=== PATIENT | female | born 1955 | race Caucasian/White ===

== ENCOUNTER 2024-12-31 13:52 | Outpatient (AMB) | payer MEDICARE, SELFPAY ==
--- NOTE | 2024-12-31 13:53 | MHC.PC.OV ---
Vital Signs 12/31/24 14:03 Height 5 ft 4.96 in Weight 271 lb BMI 45.1 BP 138/62 Blood Pressure Location Rt brachial Position Sitting Respiration 14 Pulse 68 Pulse Source Pulse Oximeter Temp 97.8 F Temp Source Temporal Artery Scan Pulse Oximetry (%) 97 Oxygen Delivery Method Room Air Intake Visit Reasons: Office visit new patient Core Fitter Required: No Accompanied by: Self / Same As Patient Allergies No Known Allergies Allergy (Verified 12/31/24 16:09) Medication List - Last Reconciled 12/31/24 by Migdalia Zuniga PA-C budesonide-formoterol 80-4.5 mcg/actuation (Symbicort) inhalation doxycycline hyclate 100 mg PO Q12H hydrochlorothiazide 25 mg PO DAILY levothyroxine 75 mcg PO DAILY lisinopril 30 mg PO DAILY metoprolol succinate ER 50 mg PO DAILY nystatin topical BID pantoprazole 40 mg PO BID simvastatin 40 mg PO BEDTIME Tobacco use date assessed: 12/31/24 Fall risk assessment: No Falls in past year Last assessed Fall Risk: 12/31/24 Dental Screening Dental Screen Date: 12/31/24 Did you have a dental visit in the last 12 months?: Yes Did you have a dental problem in the last 6 months where you did not have access to dental care?: No Was dental information given to patient?: Patient has dentist HPI Office visit new patient HPI Details The patient is a 69-year-old female presenting as a new patient to establish care, obtain multiple referrals, and address several health concerns. Her primary complaint is stomach discomfort, which is located in the right upper quadrant and is more noticeable upon waking in the morning. She has not identified any specific food triggers. The patient has a significant gastrointestinal history, including severe diverticulitis with a perforated diverticulum, which led to a colectomy and subsequent reversal around the age of 48. Her last colonoscopy was on 07/03/2014, and she is now overdue for a repeat screening which was due in 2019. She reports having lost track of her appointments after her became ill and subsequently . Her past medical history is also notable for grade 1 diastolic dysfunction, for which she takes metoprolol but has not seen a on line csr or had a cardiac ultrasound in years. She has a diagnosis of emphysema and was a smoker for many years, though she now uses e-cigarettes. Other chronic conditions include subclinical hypothyroidism treated with levothyroxine, hypertension, impaired fasting glucose, history of kidney stones, trochanteric bursitis, IT band syndrome, and morbid obesity. Surgical history includes a right hip replacement and removal of a cyst from her spine in November 2022. The patient is overdue for several health screenings, including a cervical cancer screening (last performed 3 years ago), a bone density scan (last normal in 2020), and an annual lung cancer screening. She has an upcoming appointment for a screening mammogram on 01/06 and a dermatology appointment on March 17 for a skin lesion. Her current medications include Symbicort, dicyclomine, hydrochlorothiazide, levothyroxine, lisinopril, metoprolol, nystatin ointment, pantoprazole, and simvastatin, as well as several [id number] supplements. Social History - Tobacco Use: Patient is a former smoker of traditional cigarettes and currently uses e-cigarettes. - Diet: Reports eating the same kind of junk, basically. - Social Support: Patient's after a period of illness. [facility] Medical History (Updated 12/31/24 @ 16:17 by Migdalia Zuniga PA-C) History of diverticulitis Hypertension Morbid obesity with BMI of 45.0-49.9, adult IT band syndrome Impaired fasting glucose History of kidney stones Follow-up exam Abnormal laboratory test Preventative health care Healthcare maintenance Subclinical hypothyroidism History of smoking Diastolic dysfunction Skin lesions Cervical cancer screening Upper abdominal pain Colon cancer screening Surgical History (Updated 12/31/24 @ 16:17 by Migdalia Zuniga PA-C) History of colectomy History of right hip replacement H/O removal of cyst History of colonoscopy (~07/03/14) Family History Father No problems noted. Mother No problems noted. Social History Housing: House Alcohol intake: current Alcohol intake frequency: does not drink Patient Tobacco Use Status: Former Tobacco user service: No Current occupational status: retired Cognitive needs: No Hearing needs: No Vision needs: Yes (rx glasses) Questionnaire PHQ-9 Over the last 2 weeks, how often have you been bothered by any of the following problems? 1. Little interest or pleasure in doing things: not at all 2. Feeling down, depressed, or hopeless: not at all 3. Trouble falling or staying asleep, or sleeping too much: not at all 4. Feeling tired or having little energy: not at all 5. Poor appetite or overeating: not at all 6. Feeling bad about yourself - or that you are a failure or have let yourself or your family down: not at all 7. Trouble concentrating on things, such as reading the newspaper or watching television: not at all 8. Moving or speaking so slowly that other people could have noticed. Or the opposite - being so fidgety or restless that you have been moving around a lot more than usual: not at all 9. Thoughts that you would be better off or of hurting yourself in some way: not at all Total score: 0 Depression Screening Interpretation: Negative Depression Screening Done: Yes 21786 - PHQ-9 Billing: Yes Source: Developed by Drs. Chintan Phillips, Susan Boucher, Devang Milligan and colleagues, with an educational ash from [employer]. Thrive Questionnaire Date Thrive assessed: 12/31/24 I am a: Patient What is your living situation today?: I have a steady place to live Within the past 12 months, did the food you bought not last and you didn't have the money to get more?: Never true Within the past 12 months, did you worry whether your food would run out before you got money to buy more?: Never true Do you have trouble paying for medicines?: No Do you have trouble getting transportation to medical appointments?: No Do you have trouble paying your heating and electricity bill?: No Do you have trouble taking care of your child, family member or friend?: No Do you have trouble with day-to-day activities such as bathing, preparing meals, shopping, managing finances, etc.?: No Are you currently unemployed and looking for a job?: No Are you interested in more education?: No Please select the resources that you would like help with: None THRIVE Score: 0 AUDIT C Alcohol Use Questionnaire (AUDIT-C) 1. How often do you have a drink containing alcohol?: Never 3. How often do you have six or more drinks on one occasion?: Never Total Score: 0 Score Reviewed/Action Taken: No SHARON-7 AMB Questionnaire SHARON-7 Date SHARON - 7 assessed: 12/31/24 Feeling nervous, anxious, or on edge: 1 = Several days Not being able to stop or control worryin = Several days Worrying too much about different things: 1 = Several days Trouble relaxin = Not at all Being so restless that it is hard to sit still: 0 = Not at all Becoming easily annoyed or irritable: 0 = Not at all Feeling afraid as if something awful might happen: 0 = Not at all Total SHARON-7 score (0-4 normal; 5-9 mild; 10-14 moderate; 15-21 severe): 3 Source: Developed by Drs. Chintan Phillips, Susan Boucher, Devang Milligan and colleagues, with an educational ash from [employer] SHARON-7 Assessment Billing SHARON-7 Assessment Tool: SHARON-7 Assessment 93008 Review of Systems Const Details: - General: Reports feeling generally good. Denies fevers. - GI: Reports right upper quadrant abdominal pain, which is more noticeable upon waking. - Also reports intermittent stomach clenching. - Denies nausea. - Respiratory: Reports some shortness of breath. - Cardiovascular: Denies chest pain. - Musculoskeletal: Reports hip and shoulder soreness. - Dermatologic: Reports having a weird spot on the skin. - HEENT: Reports ongoing allergies. - Extremities: Reports legs feel a little foofy. All systems reviewed & are unremarkable except as noted in HPI and below Physical exam (Primary Care) Vital Signs: Last Vital Signs Temp 97.8 F 12/31/24 14:03 Pulse 68 12/31/24 14:03 Resp 14 12/31/24 14:03 BP 138/62 12/31/24 14:03 Pulse Ox 97 12/31/24 14:03 Oxygen Delivery Method Room Air 12/31/24 14:03 Care Plan Goal for BP management: <140/90 at Goal BMI result Body Mass Index 45.1 BMI Assessment/Plan discussion: High BMI High, discussed plan: lifestyle, weight reduction, dietary, physical activity, alcohol moderation and other Tobacco/Smoking Status: Tobacco use Status Tobacco use date assessed 12/31/24 12/31/24 13:55 Patient Tobacco Use Status Former Tobacco user 12/31/24 14:12 PHQ-9: PHQ-9 Score PHQ-9: Total score 0 12/31/24 14:00 Depression Screening Interpretation: Negative Thrive Assessment: Date of Thrive Assessment Date Thrive assessed 12/31/24 12/31/24 13:55 Const Other: Appearance: Alert. Oriented X3. No acute distress. Head: Normal external exam. Normocephalic. Atraumatic. Eyes: Pupils are equal, round, and reactive to light. Extraocular movements intact. Conjunctiva and sclera normal. Eyelids normal. Ears: External auditory canal normal. Tympanic membranes normal. Throat: Pharynx normal. Uvula midline. Moist mucous membranes. Neck: Normal inspection. Neck supple. Full range of motion. No adenopathy. Thyroid Normal. No meningeal signs. No neck mass noted. Cardiovascular: Normal heart rate and rhythm. Heart sound normal. A murmur is noted. Pulses normal throughout. Respiratory: No respiratory distress. Painless inspiration. Breath sounds normal. No wheezes/rales/rhonchi noted. Chest nontender. No accessory muscle usage noted or decreased air movement noted. Abdomen: Soft and nontender. Bowel sounds normal in all 4 quadrants. No distention noted. No organomegaly noted. No visible injury noted. Reports pain in the right upper quadrant, more noticeable in the morning. Back: No costovertebral angle tenderness. Full range of motion noted. Skin: Skin warm and dry. Normal skin color. Normal skin turgor. No rashes/lesions/lacerations noted. Extremities: No lower extremity edema. Extremities exhibit normal range of motion. Extremities nontender. Neuro: Oriented X 3. No motor deficit. No sensory deficit. Reflexes normal. Office Procedures Flu Questionnaire Does the patient have a severe egg allergy?: No Does the patient have severe life threatening allergies?: No Does the patient have a fever or illness today?: No Has the patient ever had Guillain-[place] Syndrome?: No Has the patient ever had any past reaction to a flu shot?: No Immunizations Fluarix [id number] (PF) 45 mcg (15 mcg x 3)/0.5 mL IM syringe Performing Provider: Migdalia Zuniga PA-C [facility] [place] [facility] Documented (not given) by: GIUSEPPE Parks on 12/31/24 14:12 Reason Not Given: Received Previously Results Reviewed Results Reviewed: - Lab results from 09/05/2022 were reviewed: - Glucose: Normal. - Creatinine: 1.02 (elevated). - GFR: 59. - Sodium, Potassium, Chloride: Normal. - Calcium: 10.4 (high). - Total protein, albumin, liver enzymes: Normal. - Thyroid: Normal. - Apolipoprotein B: Normal. - Prior imaging reviewed: - Bone density test (03/20/2020): Normal. - Mammogram (11/30/2021): Normal. - Prior procedures reviewed: - Colonoscopy (07/03/2014): Next due in 2019. Coding Level of Care Code New Pt Level 4 (90479) Complex EM visit Add On G2211 Diagnoses Healthcare maintenance Z00.00 Preventative health care Z00.00 Upper abdominal pain R10.10 Diastolic dysfunction I51.89 Subclinical hypothyroidism E03.8 Abnormal laboratory test R89.9 Follow-up exam Z09 Colon cancer screening Z12.11 Skin lesions L98.9 History of smoking Z87.891 Cervical cancer screening Z12.4 Trochanteric bursitis M70.60 Emphysema lung J43.9 Impaired fasting glucose R73.01 IT band syndrome M76.30 Morbid obesity with BMI of 45.0-49.9, adult E66.01; Z68.42 Hypertension I10 Additional Codes PHQ-9 - 35913 - PHQ-9 Billing: Yes ([id number]) SHARON-7 Assessment Billing - SHARON-7 Assessment Tool: SHARON-7 Assessment 64908 ([id number]) Time Spent (min) 65 Assessment & Plan Assessment & Plan (1) Healthcare maintenance: Code(s): Z00.00 - Encounter for general adult medical examination without abnormal findings Category: Medical Plan: The patient is establishing care and requires several referrals for overdue screenings. A referral will be placed to Gastroenterology (Vivian Gaitan) for a screening colonoscopy, as the last was in 2014. A referral will be placed for a screening mammogram at [facility]; patient has an appointment scheduled for 01/06. A referral will be placed to TRANSFORMATION MANAGER (Dr. Jose Vera) for a Pap smear, as she has not had one in three years. A referral will be placed for a bone density scan, as her last one was in 2020. A referral will be placed to Dermatology for evaluation of a skin lesion; the patient has a scheduled appointment with Dr. Josue Harris. A referral will be placed for a low-dose CT lung cancer screening due to her history of smoking. (2) Preventative health care: Code(s): Z00.00 - Encounter for general adult medical examination without abnormal findings Category: Medical Plan: The patient is establishing care and requires several referrals for overdue screenings. A referral will be placed to Gastroenterology (Vivian Gaitan) for a screening colonoscopy, as the last was in 2014. A referral will be placed for a screening mammogram at [facility]; patient has an appointment scheduled for 01/06. A referral will be placed to TRANSFORMATION MANAGER (Dr. Jose Vera) for a Pap smear, as she has not had one in three years. A referral will be placed for a bone density scan, as her last one was in 2020. A referral will be placed to Dermatology for evaluation of a skin lesion; the patient has a scheduled appointment with Dr. Josue Harris. A referral will be placed for a low-dose CT lung cancer screening due to her history of smoking. (3) Upper abdominal pain: Code(s): R10.10 - Upper abdominal pain, unspecified Category: Medical Plan: The patient reports right upper quadrant abdominal pain, primarily in the morning. To evaluate for gallbladder pathology, an abdominal ultrasound will be ordered. The imaging facility will contact the patient to schedule the appointment. (4) Diastolic dysfunction: Code(s): I51.89 - Other ill-defined heart diseases Category: Medical Plan: The patient has a history of grade 1 diastolic dysfunction and has not had a cardiac evaluation in several years. A murmur was noted on exam. An echocardiogram will be ordered to reassess cardiac function. If the results show worsening function, a referral to cardiology will be considered. (5) Subclinical hypothyroidism: Code(s): E03.8 - Other specified hypothyroidism Category: Medical Plan: The patient has subclinical hypothyroidism and is on levothyroxine. She has never had a thyroid ultrasound. Although no nodules were palpated on exam, a thyroid ultrasound is ordered to establish a baseline and rule out structural abnormalities. The imaging facility will contact her to schedule. (6) Abnormal laboratory test: Code(s): R89.9 - Unspecified abnormal finding in specimens from other organs, systems and tissues Category: Medical Plan: Recent labs showed a mildly elevated creatinine of 1.02 and high calcium of 10.4. The patient was advised to reduce her supplemental calcium intake from daily to two or three times a week. Repeat labs will be ordered, including a CBC, CMP, magnesium, TSH, vitamin B12, folate, vitamin D, and urinalysis. These can be drawn non-fasting. The patient will have her blood work done at the [facility]. (7) Follow-up exam: Code(s): Z09 - Encounter for follow-up examination after completed treatment for conditions other than malignant neoplasm Category: Medical Plan: The patient will be contacted with results of her labs and imaging studies. She is scheduled for a follow-up appointment in approximately six months, which can be designated as her annual physical depending on insurance eligibility. (8) Colon cancer screening: Code(s): Z12.11 - Encounter for screening for malignant neoplasm of colon Category: Medical Plan: Referral made at this time (9) Skin lesions: Code(s): L98.9 - Disorder of the skin and subcutaneous tissue, unspecified Category: Medical Plan: Referral made at this time (10) History of smoking: Code(s): Z87.891 - Personal history of nicotine dependence Category: Social Hx Plan: Referral for lung cancer screening made at this time (11) Cervical cancer screening: Code(s): Z12.4 - Encounter for screening for malignant neoplasm of cervix Category: Medical Plan: Referral made at this time (12) Trochanteric bursitis: Code(s): M70.60 - Trochanteric bursitis, unspecified hip Category: Medical Plan: Condition is chronic and stable (13) Emphysema lung: Code(s): J43.9 - Emphysema, unspecified Category: Medical Plan: Condition is chronic and stable (14) Impaired fasting glucose: Code(s): R73.01 - Impaired fasting glucose Category: Medical Plan: Condition is chronic and stable (15) IT band syndrome: Code(s): M76.30 - Iliotibial band syndrome, unspecified leg Category: Medical Plan: Condition is chronic and stable (16) Morbid obesity with BMI of 45.0-49.9, adult: Code(s): E66.01 - Morbid (severe) obesity due to excess calories; Z68.42 - Body mass index [BMI] 45.0-49.9, adult Category: Medical Plan: Patient to improve diet and exercise regimen. Condition is chronic and stable (17) Hypertension: Code(s): I10 - Essential (primary) hypertension Category: Medical Plan: Patient to continue hydrochlorothiazide 25 mg daily, metoprolol extended release 50 mg daily. Condition is chronic and stable continue to monitor Plan Plan Patient was informed and verbally consented to the use of an ambient scribe for clinic note documentation during this visit. 1. Health Maintenance And Preventative Care The patient is establishing care and requires several referrals for overdue screenings. A referral will be placed to Gastroenterology (Vivian Gaitan) for a screening colonoscopy, as the last was in 2014. A referral will be placed for a screening mammogram at [facility]; patient has an appointment scheduled for 01/06. A referral will be placed to TRANSFORMATION MANAGER (Dr. Jose Vera) for a Pap smear, as she has not had one in three years. A referral will be placed for a bone density scan, as her last one was in 2020. A referral will be placed to Dermatology for evaluation of a skin lesion; the patient has a scheduled appointment with Dr. Josue Harris. A referral will be placed for a low-dose CT lung cancer screening due to her history of smoking. 2. Right Upper Quadrant Abdominal Pain The patient reports right upper quadrant abdominal pain, primarily in the morning. To evaluate for gallbladder pathology, an abdominal ultrasound will be ordered. The imaging facility will contact the patient to schedule the appointment. 3. Diastolic Dysfunction The patient has a history of grade 1 diastolic dysfunction and has not had a cardiac evaluation in several years. A murmur was noted on exam. An echocardiogram will be ordered to reassess cardiac function. If the results show worsening function, a referral to cardiology will be considered. 4. Subclinical Hypothyroidism The patient has subclinical hypothyroidism and is on levothyroxine. She has never had a thyroid ultrasound. Although no nodules were palpated on exam, a thyroid ultrasound is ordered to establish a baseline and rule out structural abnormalities. The imaging facility will contact her to schedule. 5. Abnormal Laboratory Findings Recent labs showed a mildly elevated creatinine of 1.02 and high calcium of 10.4. The patient was advised to reduce her supplemental calcium intake from daily to two or three times a week. Repeat labs will be ordered, including a CBC, CMP, magnesium, TSH, vitamin B12, folate, vitamin D, and urinalysis. These can be drawn non-fasting. The patient will have her blood work done at the [facility] facility. 6. Follow-Up The patient will be contacted with results of her labs and imaging studies. She is scheduled for a follow-up appointment in approximately six months, which can be designated as her annual physical depending on insurance eligibility. I discussed with the patient the plan for her new patient visit, which includes establishing care and addressing her multiple concerns and needs for referrals. I explained that we would be ordering an abdominal ultrasound to investigate her right upper quadrant pain, an echocardiogram to re-evaluate her heart function, and a thyroid ultrasound as a baseline for her thyroid condition. I informed her that the facilities would call her to schedule these imaging appointments. I provided her with printed referrals for gastroenterology, mammogram, TRANSFORMATION MANAGER, bone density scan, and lung cancer screening, and explained she would need to make these appointments herself. We reviewed her recent lab results, noting the elevated creatinine and calcium levels. I advised her to reduce her supplemental calcium intake and explained that we would be ordering a new set of labs to recheck her kidney function and other values. I clarified that the lab work can be done non-fasting and that she can go to the [facility] facility. I assured her that we would call her with all results. We scheduled a six-month follow-up appointment. Orders: Orders XR DEXA axial skeleton Today M81.0 - Age-related osteoporosis without current pathological fracture Magnesium Today Z00.00 - Encounter for general adult medical examination without abnormal findings Influenza [id number] Immunization Today Z23 - Encounter for immunization US abdomen complete Today R10.10 - Upper abdominal pain, unspecified MM screening mammo BI Today Z12.31 - Encounter for screening mammogram for malignant neoplasm of breast CA echo transthoracic complete Today I51.89 - Other ill-defined heart diseases TSH reflex Free T4 Today Z00.00 - Encounter for general adult medical examination without abnormal findings UA CC w/rflx Micro + Cult Today Z00.00 - Encounter for general adult medical examination without abnormal findings Vitamin B12 and Folate Today Z00.00 - Encounter for general adult medical examination without abnormal findings Vitamin D 25-OH Total Today Z00.00 - Encounter for general adult medical examination without abnormal findings Complete Blood Count no Diff Today Z00.00 - Encounter for general adult medical examination without abnormal findings Comprehensive Met. Panel Today Z00.00 - Encounter for general adult medical examination without abnormal findings Hemoglobin A1c Today Z00.00 - Encounter for general adult medical examination without abnormal findings US thyroid Today E03.8 - Other specified hypothyroidism Referrals TRANSFORMATION MANAGER Referral Z12.4 - Encounter for screening for malignant neoplasm of cervix Dermatology Referral L98.9 - Disorder of the skin and subcutaneous tissue, unspecified Lung Cancer Screening Referral Z87.891 - Personal history of nicotine dependence Gastroenterology Referral Z12.11 - Encounter for screening for malignant neoplasm of colon Patient Instructions: - You have been given paper referrals for several specialists and tests (colonoscopy, mammogram, AMBULATORY ANALYST, bone scan, lung cancer screen, dermatology). - Please call them to make your appointments. - You will receive calls to schedule an ultrasound of your belly, an ultrasound of your heart, and an ultrasound of your thyroid. - Please go to the lab for blood work. - You do not need to fast (you can eat and drink as normal) before your blood test. - Decrease the amount of calcium pills you take to two or three times per week instead of every day. - We will call you with the results of your tests and imaging studies. - Your next follow-up appointment is scheduled in about six months. - If you think of anything else you needed to discuss, please send a message or call the office.
[2024-12-31 14:03] VITALS: BP 138/62; PULSE 68; RESP 14; TEMP 36.6; O2SAT 97; BMI 45.1
== END 2024-12-31 14:52 | disposition home or self-care (01) ==
LOC: HO.HMCSH 13:52
PROVIDERS: PCP Physician Assistant Medical; Visit Provider Physician Assistant Medical
DX: Z00.00 Encounter for general adult medical examination without abnormal findings (principal); R10.10 Upper abdominal pain, unspecified; I51.89 Other ill-defined heart diseases; E03.8 Other specified hypothyroidism; R89.9 Unspecified abnormal finding in specimens from other organs, systems and tissues; Z09 Encounter for follow-up examination after completed treatment for conditions other than malignant neoplasm; Z12.11 Encounter for screening for malignant neoplasm of colon; L98.9 Disorder of the skin and subcutaneous tissue, unspecified; Z87.891 Personal history of nicotine dependence; Z12.4 Encounter for screening for malignant neoplasm of cervix; M70.60 Trochanteric bursitis, unspecified hip; J43.9 Emphysema, unspecified; R73.01 Impaired fasting glucose; M76.30 Iliotibial band syndrome, unspecified leg; E66.01 Morbid (severe) obesity due to excess calories; Z68.42 Body mass index [BMI] 45.0-49.9, adult; I10 Essential (primary) hypertension; Z23 Encounter for immunization

== ENCOUNTER → 2024-12-31 13:52 | Outpatient (BNVA) | payer MEDICARE, SELFPAY | PROVIDERS: PCP Physician Assistant Medical; Visit Provider Physician Assistant Medical | DX: Z28.89 Immunization not carried out for other reason (principal); Z00.00 Encounter for general adult medical examination without abnormal findings; Z09 Encounter for follow-up examination after completed treatment for conditions other than malignant neoplasm; Z12.11 Encounter for screening for malignant neoplasm of colon; Z12.4 Encounter for screening for malignant neoplasm of cervix; R10.10 Upper abdominal pain, unspecified; I51.89 Other ill-defined heart diseases; E03.8 Other specified hypothyroidism; R89.9 Unspecified abnormal finding in specimens from other organs, systems and tissues; L98.9 Disorder of the skin and subcutaneous tissue, unspecified; M70.60 Trochanteric bursitis, unspecified hip; J43.9 Emphysema, unspecified; R73.01 Impaired fasting glucose; M76.30 Iliotibial band syndrome, unspecified leg; E66.01 Morbid (severe) obesity due to excess calories; I10 Essential (primary) hypertension; Z87.891 Personal history of nicotine dependence; Z68.42 Body mass index [BMI] 45.0-49.9, adult | CPT/HCPCS: 90471; 96127; 99202 ==

== ENCOUNTER → 2025-01-31 11:01 | Outpatient (REF) | payer MEDICARE, SELFPAY ==
--- NOTE | 2025-01-31 11:05 | CA_ITS ---
Transthoracic Echocardiogram Patient (Last, First, Middle): Alice Nguyen, Gender: Female Date of : 1955 Age: 69 Procedure Date: 01/31/2025 Procedure Type: Transthoracic Echocardiogram Location: OP Height: 165.1 cm Weight: 122.93 kg BSA: 2.25 m2 Heart Rate: 69 bpm BP: 138 / 62 mmHg History Faculty Member: TO Referring MD: Migdalia Zuniga PA-C Garment Steamer: Son Rubio MD Symptoms: I51.89 - Other ill-defined heart diseases Study Quality: Adequate w contrast ECG Rhythm: Sinus Conclusions: - 1. Normal LV ejection fraction of 60 65% with impaired relaxation filling pattern 2. Normal cardiac valvular Dopplers 3. No gross pericardial effusion Findings Procedure Information Contrast agent, definity, is being given per protocol without apparent complications. Left Ventricle Normal left ventricular size, thickness, and systolic function. The visually estimated ejection fraction is between 60-65%. Spectral Doppler is indicative of an impaired relaxation filling pattern. E/E prime ratio is between 8 and 15 consistent with indeterminate filling pressures. Right Ventricle Normal right ventricular cavity size and systolic function. Atria Both atria are normal in size. There is no evidence of interatrial shunt. Aortic Valve The aortic valve structure and function is likely normal. There is no aortic valve stenosis. There is no aortic valve regurgitation. Mitral Valve Normal mitral valve structure and function. There is trace mitral valve regurgitation. There is no mitral valve stenosis. Pulmonic Valve The pulmonic valve is likely normal. Tricuspid Valve Normal tricuspid valve structure. Tricuspid regurgitation envelope is inadequate for calculation of right ventricular systolic pressure. Normal right atrial pressure. Great Vessels All visible segments of the aorta are normal in size. The pulmonary artery was not well visualized. There is no dilatation of the ascending aorta measuring 3.20 cm. Venous The inferior vena cava is normal in size and collapses greater than 50% with inspiration. Pericardium/Pleural There is no evidence of pericardial effusion. Prior Study Comparison No prior study available for comparison. Measurements 2D Linear Measurements IVSd: 0.95 0.6-0.9/0.6-1.0 cm LVIDd: 4.78 3.9-5.3/4.2-5.9 cm LVIDd Index: 2.12 2.4-3.2/2.2-3.1 cm/m2 LVIDs: 3.05 2.0-3.6 cm LVPWd: 0.80 0.7-1.1 cm LA Diam: 3.70 2.7-3.8/3.0-4.0 cm LAIDs Index: 1.64 1.5-2.3 cm/m2 LV Mass: 176.13 67-162/88-224 g LV Mass Index: 78.28 43-95/49-115 g/m2 LVOT Diam: 2.20 3.0+(-)1.3 cm 2D Systolic Function EF 4C: 60.70 >55% EF 2C: 65.50 >55% EF BiP: 61.70 >55% Mitral Valve MV Pk E: 1.02 MV PK A: 1.18 MV Decel Time: 162.00 E/A: 0.90 E'Lateral: 6.85 E'Medial: 6.85 E/E' Med: 14.90 E/E' Lat: 14.90 PHT: 47.00 MVA PHT: 4.68 Decel [place]: 6.32 Aortic Valve AoV Pk Francis: 1.62 AoV Mn Francis: 1.10 AoV VTI: 0.36 AoV Pk Grad: 10.00 Aov Mn Grad: 6.00 VEL Cont.VTI: 2.74 LVOT LVOT Pk Francis: 1.12 LVOT Mn Francis: 0.75 LVOT VTI: 0.26 LVOT Pk Grad: 5.00 LVOT Mn Grad: 3.00 LVOT Diam: 2.20 LVOT Area: 3.80 Diastolic Function MV Pk E: 1.02 MV Pk A: 1.18 E/A: 0.90 E'Medial: 6.85 E/E' Med: 14.90 E' Laterial: 6.85 E/E' Lat: 14.90 Right Ventricle TAPSE (mm): 24.80 TVS' Francis: 12.20 Tricuspid Valve RA Press: 3.00 Great Vessels Aorta Sinus of Valsalva: 3.07 2.0-3.5 cm Ao Asc: 3.20 2.1-3.4 cm Updated in Other Vendor System with Status of Final Son Rubio MD electronically signed on 02/01/2025 12:13:47 PM with status of Final
[2025-01-31 13:59] LABS: Hematocrit 37.8 % (37.0-47.0); Hemoglobin 12.6 g/dl (12.0-16.0); Mean Corpuscular HGB Conc 33.3 g/dl (31.0-35.0); Mean Corpuscular Hemoglobin 32.1 pg (27.0-33.0); Mean Corpuscular Volume 96.2 fL (80.0-98.0); NRBC Abs Auto 0.000 X10*3/uL (0.0-0.012); NRBC Pct Auto 0.0 /100WBC (0.0-0.2); Platelet Count 270 X10*3/uL (160-400); Red Blood Count 3.93 X10*6/uL (4.20-5.50); White Blood Count 9.1 X10*3/uL (4.8-10.8)
[2025-01-31 14:21] LABS: Appearance Urine Clear; Glucose Urine UA Negative (Negative); PH 5.5 (5.0-9.0); Specific Gravity - Urine <= 1.005 (1.005-1.025); UMIC TRIGGER UACC YES
[2025-01-31 14:33] LABS: UACC Culture Trigger YES
[2025-01-31 14:54] LABS: Alanine Aminotransferase 14 U/L (0-31); Albumin Level 4.4 g/dL (3.5-5.0); Alkaline Phosphatase 52 U/L (39-117); Anion Gap 15 (12-20); Aspartate Amino Transferase 22 U/L (5-31); Blood Urea Nitrogen 22 mg/dL (9-16); Calcium 9.8 mg/dL (8.4-10.2); Carbon Dioxide 24 mmol/L (22-29); Chloride 105 mmol/L (96-108); Estimated Glomerular Filt Rate 48; Magnesium 1.9 mg/dL (1.6-2.6); Potassium 4.7 mmol/L (3.3-5.1); Sodium 139 mmol/L (135-145); Total Protein 6.9 g/dL (6.5-8.0)
[2025-01-31 15:13] LABS: Folate 12.2 ng/mL (> or = 4.0); Vitamin B12 490 pg/mL (200-900)
== END ==
LOC: HO.CARD 11:01
PROVIDERS: PCP Physician Assistant Medical; Visit Provider Physician Assistant Medical
DX: Z00.00 Encounter for general adult medical examination without abnormal findings (principal); I51.89 Other ill-defined heart diseases; Z13.1 Encounter for screening for diabetes mellitus; Z13.29 Encounter for screening for other suspected endocrine disorder; Z13.21 Encounter for screening for nutritional disorder
CPT/HCPCS: 36415; 80053; 81001; 82306; 82607; 82746; 83036; 83735; 84443; 85027; 87086; 93306; Q9957

== ENCOUNTER → 2025-01-31 11:05 | Outpatient (BNV) | payer MEDICARE, SELFPAY | PROVIDERS: PCP Physician Assistant Medical; Visit Provider Internal Medicine Cardiovascular Disease | DX: I51.89 Other ill-defined heart diseases (principal) | CPT/HCPCS: 93306 ==